=== PATIENT | male | born 1965 | race Caucasian/White ===

== ENCOUNTER 2018-03-01 06:56 | Emergency (ER) | payer BC ==
--- OUTSIDE RECORDS SUMMARY | 2018-03-01 06:58 | XMS REPORT | Clinical Summary ---
:1965 Author Organization [facility] Address [address] [place] [address] Care Team Providers Name Role Phone Hayes Diego MD Primary Care Provider Allergies No Known Allergies Current Medications Prescription Sig. Disp. Refills Start Date End Date Status lisinopril-hydrochlorothia 01/29/2018 Active zide (PRINZIDE,ZESTORETIC) 20-12.5 mg per tablet rosuvastatin (CRESTOR) 40 01/29/2018 Active MG tablet omeprazole (PriLOSEC) 40 Take 40 mg by Active MG capsule mouth daily. Active Problems Problem Noted Date Cervical spondylosis with myelopathy 02/05/2018 Ulnar neuropathy at elbow, right 02/05/2018 Cervical radiculopathy at C7 02/05/2018 Cervical radiculopathy at C6 02/05/2018 Encounters Date Type Specialty Care Team Description 02/22/2018 Telephone Neurosurgery Breanna Aleman LVN 02/20/2018 Hospital Encounter General Surgery Pato Schultz S/Ada cervical spinal fusion; MD Miri Spondylosis of cervical spine with myelopathy 02/20/2018 Ancillary Orders Radiology Pato Schultz S/Ada cervical spinal MD Miri fusion 02/20/2018 Procedure Pass General Surgery 02/20/2018 Surgery General Surgery Ptao Schultz ANTERIOR CERVICAL MD Miri DISCECTOMY AND FUSION C5-C7, RIGHT ILIAC CREST BONE MARROW ASPIRATION 02/05/2018 Pre-Admit Testing Pre-Admission Testing Pato Schultz Preop testing Appointment MD Miri (Primary Dx) 02/05/2018 Hospital Encounter Radiology Pato Schultz MD 02/05/2018 Office Visit Neurosurgery Pato Schultz Cervical spondylosis with myelopathy (Primary Dx); MD Miri Ulnar neuropathy at elbow, right; Cervical radiculopathy at C7; Cervical radiculopathy at C6 02/05/2018 Hospital Encounter Radiology Pato Schultz MD radiculopathy 02/05/2018 Hospital Encounter Radiology Pato Schultz MD radiculopathy 02/05/2018 Anesthesia Event General Surgery Zoey Augustinekaranmisael, ELEMENTARY EDUCATION TUTOR 02/05/2018 Procedure Pass Radiology 02/05/2018 Ancillary Orders Radiology Pato Schultz MD 02/02/2018 Abstract Neurosurgery Breanna Aleman, DONNA 02/02/2018 Orders Only Neurosurgery Pato Schultz MD radiculopathy (Primary Dx) after 02/28/2017 Family History Medical History Relation Name Comments Hepatitis Father Heart disease Maternal Grandfather Hypertension Maternal Grandfather Diabetes Maternal Grandmother Arthritis Mother Migraines Mother Relation Name Status Comments Father Maternal Grandfather Maternal Grandmother Mother Social History Tobacco Use Types Packs/Day Years Used Date Never Smoker Smokeless Tobacco: Never Used Alcohol Use Drinks/Week oz/Week Comments Yes 20 Glasses of wine 12.0 4-5 bottles of wine/week Sex Assigned at Date Recorded Not on file Last Filed Vital Signs Vital Sign Reading Time Taken Blood Pressure 132/82 02/20/2018 3:22 PM CDT Pulse 97 02/20/2018 3:22 PM CDT Temperature 36.7 C (98 F) 02/20/2018 3:22 PM CDT Respiratory Rate 18 02/20/2018 3:22 PM CDT Oxygen Saturation 98% 02/20/2018 3:22 PM CDT Inhaled Oxygen Concentration - - Weight 95.3 kg (210 lb 1.6 oz) 02/20/2018 8:17 AM CDT Height 185.4 cm (6' 1") 02/20/2018 8:17 AM CDT Body Mass Index 27.72 02/20/2018 8:17 AM CDT Plan of Treatment Health Maintenance Due Date Last Done Comments COLON CANCER SCREENING 09/17/2013 SHINGRIX VACCINE (#1) 09/17/2013 INFLUENZA VACCINE 01/10/2018 Implants Implanted Type Area [facility] Device Expiration Model / Identifier Date Serial / Lot Kit Putty Bone 1.5ml Mastergraft - [id number] Human N/A: MEDTRONIC SPINAL 06/11/2020 [id number] / Implanted: Qty: 1 on 02/20/2018 by Pato Schultz MD Tissue N/A AND BIOLOGICS / Implants [id number] Instrument [id number] Liam 2 Sheldon Trocar, Liam Needle (Other - Tl Retractor / Access), Disposable - [id number] IMPLANT N/A: MEDTRONIC [id number] / Implanted: Qty: 1 on 02/20/2018 by Pato Schultz MD DEVICES N/A SOFAMOR DANEK / Cage [id number] Anatomic Ptc [id number] - [id number] - [id number] [id number] IMPLANT N/A: MEDTRONIC 01/08/2026 [id number] / Implanted: Qty: 1 on 02/20/2018 by Pato Schultz MD DEVICES N/A SOFAMOR DANEK [id number] / 14FR Cage [id number] Anatomic Ptc [id number] - [id number] [id number] IMPLANT N/A: MEDTRONIC 12/18/2025 [id number] / Implanted: Qty: 1 on 02/20/2018 by Pato Schultz MD DEVICES N/A SOFAMOR DANEK / 11FS Screw Spinal Slf-Drl V-Ang 4x17mm - [id number] Spinal N/A: MEDTRONIC SPINAL [id number] / Implanted: 02/20/2018 (Quantity not on file) Implants N/A AND BIOLOGICS / Plate Cerv Ant 40mm [place] Vision Elite - [id number] Spinal N/A: MEDTR[employer]IC SPINAL [id number] / Implanted: 02/20/2018 (Quantity not on file) Implants N/A AND BIOLOGICS / Screw Distrctn 14mm Strl - [id number] Surgical N/A: ARMAMENTARIUM [id number] / Implanted: Qty: 1 on 02/20/2018 by Pato Schultz MD Implants; N/A INC / Expanders; Extenders; Surgical Wires Screw Distrctn 14mm Strl - [id number] Surgical N/A: ARMAMENTARIUM SM [id number] / Implanted: Qty: 1 on 02/20/2018 by Pato Schultz MD Implants; N/A INC / Expanders; Extenders; Surgical Wires Procedures Procedure Name Priority Date/Time Associated Comments Diagnosis SURGICAL PATHOLOGY Routine 02/20/2018 1:54 Results for this REQUEST PM CDT procedure are in the results section. XR CERVICAL SPINE 1 Routine 02/20/2018 12:33 S/P cervical spinal Results for this VW PM CDT fusion procedure are in the results section. XR CERVICAL SPINE 1 Routine 02/20/2018 10:40 S/P cervical spinal Results for this VW AM CDT fusion procedure are in the results section. XR CERVICAL SPINE 1 Routine 02/20/2018 10:33 S/P cervical spinal Results for this VW AM CDT fusion procedure are in the results section. AK AN ELECTIVE Routine 02/20/2018 10:08 ENDOTRACHEAL AIRWAY AM CDT Procedure Note - Maricel Maki MD - 02/20/2018 10:08 AM CDT Airway Date/Time: 02/20/2018 10:08 AM Performed by: MARICEL MAKI Authorized by: MARICEL MAKI Location: OR Urgency: Elective Difficult Airway: No Preoxygenated with 100% O2: Yes C-spine Precautions Maintained Throughout: No (gentle neck extention ) Mask Ventilation: Easy mask Final Airway Type: Endotracheal airway Final Endotracheal Airway: ETT Cuffed: No Technique Used: Direct laryngoscopy Devices/Methods Used in Placement: Intubating stylet Insertion Site: Oral Blade Type: Belinda Laryngoscope Blade/Videolaryngoscope Blade Size: 3 ETT Size (mm): 8.0 Measured from: Lips ETT to Lips (cm): 24 Placement Verified by: CO2 detection, direct visualization and equal breath sounds Laryngoscopic view: Grade I - full view of glottis (with laryngeal pressure ) Rapid Sequence Induction (RSI): No Modified RSI: No Number of Attempts at Approach: 1 Single uncomplicated attempt. Full view achieved with gentle upward pressure on larynx DISCECTOMY, CERVICAL, WITH 02/20/2018 10:00 AM CDT Spondylosis of cervical FUSION, ANTERIOR APPROACH spine with myelopathy Case Notes SUPINE POSITION, MICROSCOPE, MED[employer]ONIC INSTRUMENTATION, POSSIBLE EXTENDED RECOVERY NEEDED Special Needs SUPINE POSITION, MICROSCOPE, [employer] INSTRUMENTATION, POSSIBLE EXTENDED RECOVERY NEEDED ZZESTIMATED GFR Routine 02/05/2018 2:32 Results for this PM CDT procedure are in the results section. COMPREHENSIVE Routine 02/05/2018 2:32 Preop testing Results for this METABOLIC PANEL PM CDT procedure are in the results section. HC COMPLETE BLD COUNT Routine 02/05/2018 2:32 Preop testing Results for this W/AUTO DIFF PM CDT procedure are in the results section. XR CERVICAL SPINE Routine 02/05/2018 12:36 Cervical Results for this COMPLETE W FLEX EXT PM CDT radiculopathy procedure are in the results section. XR SPINE SCOLIOSIS Routine 02/05/2018 12:35 Cervical Results for this 2-3 VIEWS PM CDT radiculopathy procedure are in the results section. MRI SPINE EXTERNAL Routine 01/11/2018 4:19 Results for this STUDY PM CDT procedure are in the results section. after 02/28/2017 Results Surgical pathology request (02/20/2018 1:54 PM) [facility] DEPARTMENT OF PATHOLOGY AND GENOMIC MEDICINE Surgical pathology report See link below for PDF [facility] DE[facility] OF Lab Report PATHOLOGY AND GENOMIC MEDICINE Result status This is Final Report [facility] OF for [id number] PATHOLOGY AND GENOMIC MEDICINE Performing Organization Address City/[facility] Phone Number [facility] DEPARTMENT OF PATHOLOGY AND [address] [place] [address] GENOMIC MEDICINE XR Cervical Spine 1 Vw (02/20/2018 12:33 PM)Only the most recent of3 resultswithin the time period is included. Narrative Performed At EXAMINATION:XR CERVICAL SPINE 1 VW [facility] CLINICAL HISTORY:Z98.1 Arthrodesis status COMPARISON:None. IMPRESSION: Lateral intraoperative localization radiograph of the cervical spine demonstrates a clamp anterior to the spine at the level of mid C6. [facility]-[id number] Procedure Note Interface, Radiology Results Incoming - 02/20/2018 12:43 PM CDT EXAMINATION: XR CERVICAL SPINE 1 VW CLINICAL HISTORY: Z98.1 Arthrodesis status COMPARISON: None. IMPRESSION: Lateral intraoperative localization radiograph of the cervical spine demonstrates a clamp anterior to the spine at the level of mid C6. [facility]-[id number] Performing Organization Address City/[facility]/Zipcode Phone Number [facility] [address] [place] [address] Estimated GFR (02/05/2018 2:32 PM) GFR Non Af Amer 70 mL/min/1.73 m2 [facility] DEPARTMENT OF PATHOLOGY AND GENOMIC MEDICINE GFR Af Amer 84 mL/min/1.73 m2 [facility] DEPART[facility] OF Comment: PATHOLOGY AND GENOMIC Chronic kidney disease: <60 mL/min/1.73m2 MEDICINE Kidney failure: <15 mL/min/1.73m2 The estimated GFR is calculated from the IDMS-traceable Modification of Diet in Renal Disease Equation. The accuracy of the calculation is poor when the creatinine is normal. Calculated values >90 mL/min/1.73m2 are not reported. This equation has not been validated in children (<18 years), women, the elderly (>70 years), or ethnic groups other than Caucasians and Americans. Specimen Plasma specimen Performing Organization Address City/State/Zipcode Phone Number [facility] DEPARTMENT OF PATHOLOGY AND [address] [place] [address] [employer] [facility] CBC with platelet and differential (02/05/2018 2:32 PM) WBC 7.85 4.50 - 11.00 k/uL [facility] DEPARTMENT OF PATHOLOGY AND GENOMIC MEDICINE RBC 4.81 4.40 - 6.00 m/uL [facility] DE[facility]MENT OF PATHOLOGY AND GENOMIC MEDICINE HGB 14.9 14.0 - 18.0 g/dL [facility] DEPARTMENT OF PATHOLOGY AND GENOMIC MEDICINE HCT 44.5 41.0 - 51.0 % [facility] DEPARTMENT OF PATHOLOGY AND GENOMIC MEDICINE MCV 92.5 82.0 - 100.0 fL [facility] DEPARTMENT OF PATHOLOGY AND GENOMIC MEDICINE MCH 31.0 27.0 - 34.0 pg [facility] DEPARTMENT OF PATHOLOGY AND GENOMIC MEDICINE MCHC 33.5 31.0 - 37.0 g/dL [facility] DEPARTMENT OF PATHOLOGY AND GENOMIC MEDICINE RDW - SD 45.4 37.0 - 55.0 fL [facility] DEPARTMENT OF PATHOLOGY AND GENOMIC MEDICINE MPV 10.1 8.8 - 13.2 fL [facility] DEPARTMENT OF PATHOLOGY AND GENOMIC MEDICINE Platelet count 302 150 - 400 k/uL [facility] DEPARTMENT OF PATHOLOGY AND GENOMIC MEDICINE Nucleated RBC 0.00 /100 WBC [facility] DEPARTMENT OF PATHOLOGY AND GENOMIC MEDICINE Neutrophils 64.2 39.0 - 69.0 % [facility] DE[facility]MENT OF PATHOLOGY AND GENOMIC MEDICINE Lymphocytes 25.6 25.0 - 45.0 % [facility] DEPARTMENT OF PATHOLOGY AND GENOMIC MEDICINE Monocytes 8.7 0.0 - 10.0 % [facility] DEPARTMENT OF PATHOLOGY AND GENOMIC MEDICINE Eosinophils 0.8 0.0 - 5.0 % [facility] DEPARTMENT OF PATHOLOGY AND GENOMIC MEDICINE Basophils 0.3 0.0 - 1.0 % [facility] DEPARTMENT OF PATHOLOGY AND GENOMIC MEDICINE Immature granulocytes 0.4Comment: 0.0 - 1.0 % [facility] DEPART[facility] OF "Immature PATHOLOGY AND GENOMIC granulocytes" MEDICINE (promyelocytes, myelocytes, metamyelocytes) Specimen Blood Performing Organization Address City/[facility] Cent[facility]ode Phone Number [facility] DEPARTMENT OF PATHOLOGY AND [address] [place] [address] [facility] MEDICINE Comprehensive metabolic panel (02/05/2018 2:32 PM) Sodium 140 135 - 148 mEq/L [facility] DEPARTMENT OF PATHOLOGY AND GENOMIC MEDICINE Potassium 4.3 3.5 - 5.0 mEq/L [facility] DEPARTMENT OF PATHOLOGY AND GENOMIC MEDICINE Chloride 100 98 - 112 mEq/L [facility] DEPARTMENT OF PATHOLOGY AND GENOMIC MEDICINE CO2 24 24 - 31 mEq/L [facility] DEPARTMENT OF PATHOLOGY AND GENOMIC MEDICINE Anion gap 16@ANIO (H) 7 - 15 mEq/L [facility] DEPARTMENT OF PATHOLOGY AND GENOMIC MEDICINE BUN 24 (H) 6 - 20 mg/dL [facility] DEPARTMENT OF PATHOLOGY AND GENOMIC MEDICINE Creatinine 1.1 0.70 - 1.20 mg/dL [facility] DEPARTMENT OF PATHOLOGY AND GENOMIC MEDICINE Glucose 102 (H) 65 - 99 mg/dL [facility] DEPARTMENT OF PATHOLOGY AND GENOMIC MEDICINE Calcium 10.2 8.3 - 10.2 mg/dL [facility] DEPARTMENT OF PATHOLOGY AND GENOMIC MEDICINE Protein 7.7 6.3 - 8.3 g/dL [facility] DEPARTMENT OF Comment: PATHOLOGY AND GENOMIC 4.6-7.0 g/dL MEDICINE 1 week 4.4-7.6 g/dL 7 months-1year5.1-7.3 g/dL 1-2 years5.6-7.5 g/dL >3 years6.0-8.0 g/dL 18-150 6.3-8.3 g/dL Albumin 4.2 3.5 - 5.0 g/dL [facility] DEPARTMENT OF PATHOLOGY AND GENOMIC MEDICINE A/G ratio 1.2 0.7 - 3.8 [facility] DEPARTMENT OF PATHOLOGY AND GENOMIC MEDICINE Alkaline phosphatase 57 40 - 129 U/L [facility] DEPARTMENT OF PATHOLOGY AND GENOMIC MEDICINE AST 33 10 - 50 U/L [facility] DEPARTMENT OF PATHOLOGY AND GENOMIC MEDICINE ALT 42 5 - 50 U/L [facility] DEPARTMENT OF PATHOLOGY AND GENOMIC MEDICINE Total bilirubin 0.3 0.0 - 1.2 mg/dL [facility] DEPARTMENT OF PATHOLOGY AND GENOMIC MEDICINE Specimen Plasma specimen Performing Organization Address City/[facility]/Zipcode Phone Number [facility] DEPARTMENT OF PATHOLOGY AND [address] [place] [address] [facility] XR Cervical Spine Complete w flex/ext (02/05/2018 12:36 PM) Narrative Performed At EXAMINATION:XR CERVICAL SPINE COMPLETE W FLEX EXT [facility] CLINICAL HISTORY:M54.12 Radiculopathycervical region, radiculopathy COMPARISON: None. TECHNIQUE: Total of 8 radiographs of the cervical spine, including AP, lateral, and 2 oblique projections, with flexion and extension. IMPRESSION: Cervical spine is visualized to C6 level including C6-C7 intervertebral space. Straightening the cervical spine, however no subluxation on neutral, flexion or extension views. Vertebral heights preserved. Intervertebral disc space narrowing is noted at C5-C6 and C6-7 with endplate sclerosis. Medium sized osteophytes are seen in the lower portions of the cervical spine. At least mild neural foraminal narrowing is noted bilaterally at C5-C6 and C6-7 secondary to degenerative uncovertebral hypertrophy. No prevertebral soft tissue swelling. I personally reviewed the images and the resident's findings and agree with the final report. [facility]-[id number] Procedure Note Interface, Radiology Results Incoming - 02/05/2018 5:32 PM CDT EXAMINATION: XR CERVICAL SPINE COMPLETE W FLEX EXT CLINICAL HISTORY: M54.12 Radiculopathy cervical region, radiculopathy COMPARISON: None. TECHNIQUE: Total of 8 radiographs of the cervical spine, including AP, lateral, and 2 oblique projections, with flexion and extension. IMPRESSION: Cervical spine is visualized to C6 level including C6-C7 intervertebral space. Straightening the cervical spine, however no subluxation on neutral, flexion or extension views. Vertebral heights preserved. Intervertebral disc space narrowing is noted at C5-C6 and C6-7 with endplate sclerosis. Medium sized osteophytes are seen in the lower portions of the cervical spine. At least mild neural foraminal narrowing is noted bilaterally at C5-C6 and C6- 7 secondary to degenerative uncovertebral hypertrophy. No prevertebral soft tissue swelling. I personally reviewed the images and the resident's findings and agree with the final report. [facility]-[id number] Performing Organization Address City/State/Zipcode Phone Number [facility] [address] [place] [address] XR Spine Scoliosos 2-3 Views (02/05/2018 12:35 PM) Narrative Performed At EXAMINATION:XR SPINE SCOLIOSIS 2-3 VIEWS [facility] CLINICAL HISTORY:M54.12 Radiculopathycervical region, radiculopathy COMPARISON:None. Frontal and lateral views of entire spine was performed per scoliosis protocol. IMPRESSION: There is mild broad-based leftward curvature at T5. There is 10 degrees rightward curvature at T8. There is 8 degree leftward curvature at L1. There is 6 degrees rightward coronal balance. Femoral head heights are symmetric. Sagittal imaging shows 0 sagittal balance. There is no acute compression deformity. Heart size is upper normal. Aorta is mildly tortuous. Lungs are clear. Bowel gas pattern is nonobstructive. Visualized pelvic bones are intact with degenerative changes in the bilateral hip joints with joint space narrowing which is moderate severe left and severe on the right. [facility]-[id number] Procedure Note Interface, Radiology Results Incoming - 02/05/2018 2:44 PM CDT EXAMINATION: XR SPINE SCOLIOSIS 2-3 VIEWS CLINICAL HISTORY: M54.12 Radiculopathy cervical region, radiculopathy COMPARISON: None. Frontal and lateral views of entire spine was performed per scoliosis protocol. IMPRESSION: There is mild broad-based leftward curvature at T5. There is 10 degrees rightward curvature at T8. There is 8 degree leftward curvature at L1. There is 6 degrees rightward coronal balance. Femoral head heights are symmetric. Sagittal imaging shows 0 sagittal balance. There is no acute compression deformity. Heart size is upper normal. Aorta is mildly tortuous. Lungs are clear. Bowel gas pattern is nonobstructive. Visualized pelvic bones are intact with degenerative changes in the bilateral hip joints with joint space narrowing which is moderate severe left and severe on the right. [facility]-[id number] Performing Organization Address City/[facility]/Zipcode Phone Number [facility] [address] [place] [address] MRI Spine External Study (01/11/2018 4:19 PM) Narrative Performed At This exam was not acquired at a [facility] facility and has not been [facility] interpreted by a [facility] Provider.The exam was imported into our imaging system for comparisons purposes. Performing Organization Address City/State/Zipcode Phone Number [facility] [address] [place] [address] after 02/28/2017 Insurance Payer Benefit Plan / Group Subscriber ID Type Phone Address BCBS BCBS CHOICE PPO/FEDERAL EMPL PPO xxxxxxxxxxxx PPO Home: [address] [phone] [place], [place] [phone]
[2018-03-01] MEDS ORDERED: ASPIRIN 81 MG CHEWABLE TABLET ONE (07:18)
[2018-03-01] MEDS ORDERED: ONDANSETRON 4 MG/2 ML VIAL ONE ×2 (07:19→10:06)
[2018-03-01] MEDS ORDERED: MORPHINE 4 MG/ML SYR ONE ×2 (07:19→10:05)
[2018-03-01 07:47] LABS: Absolute Lymphocytes (CBC) 2.1 K/uL (0.7-4.9); Absolute Monocytes 0.7 K/uL (0.1-1.3); Absolute Neutrophil 5.4 K/uL (1.8-8.0); Basophils % 0.8 % (0-1.3); Hematocrit 45.4 % (39.6-49.0); Lymphocytes % 24.4 % (15.3-44.8); MCH 32.5 pg (27.0-35.0); MCV 93.3 fL (80-100); Monocytes % 8.4 % (3.3-12.3); Protime INR 0.98; RBC Red Blood Cell Count 4.87 M/uL (4.33-5.43)
[2018-03-01 07:59] LABS: ALT/SGPT 41 U/L (12-78); AST/SGOT 25 U/L (15-37); Albumin 3.7 g/dL (3.4-5.0); Alkaline Phosphatase 105 U/L (45-117); BUN Blood Urea Nitrogen 21 mg/dL (7-18); Bicarbonate 29 mmol/L (21-32); Bilirubin Direct 0.1 mg/dL (0-0.2); Bilirubin Total 0.3 mg/dL (0.2-1.0); Glucose Level 106 mg/dL (74-106); Magnesium 2.3 mg/dL (1.8-2.4); NT PRO-BNP 11 pg/mL (<125); Potassium 4.3 mmol/L (3.5-5.1); Protein, Total 8.5 g/dL (6.4-8.2); Sodium Level 140 mmol/L (136-145); Troponin (Emerg Dept Use Only) < 0.02 ng/mL (0.0-0.045)
--- NOTE | 2018-03-01 08:35 | RAD REPORT ---
EXAM DESCRIPTION: RAD - Chest Single View - 03/01/2018 7:40 am CLINICAL HISTORY: CHEST PAIN Chest pain. COMPARISON: No comparisons FINDINGS: Portable technique limits examination quality. The lungs are grossly clear. The heart is normal in size. No displaced fractures.Hardware is present in the cervical spine. IMPRESSION: No acute intrathoracic process suspected.
--- NOTE | 2018-03-01 08:42 | RAD REPORT ---
EXAM DESCRIPTION: CT - Chest For Pe Angio - 03/01/2018 8:25 am CLINICAL HISTORY: Chest pain. Chest pain;Dyspnea COMPARISON: No comparisons TECHNIQUE: CT angiogram of the pulmonary arteries was performed with MIP. All CT scans are performed using dose optimization technique as appropriate and may include automated exposure control or mA/KV adjustment according to patient size. FINDINGS: No evidence of pulmonary thromboembolism. No acute aortic finding demonstrated. Linear subsegmental atelectasis is present in the right lung base. Mild interstitial pulmonary edema versus interstitial pneumonia suspected. No significant pericardial or pleural fluid. Postsurgical hardware plate noted in the lower cervical spine. The paraspinal soft tissues in the reg ion are mildly thickened without a significant fluid collection seen. IMPRESSION: No evidence of pulmonary thromboembolism. Prominent interstitial markings bilaterally could indicate mild interstitial pulmonary edema versus i nterstitial pneumonitis.
--- NOTE | 2018-03-01 10:45 | EDPHYS ---
Physician Documentation [facility] Name: Toni Ohara Age: 52 yrs Sex: Male : 1965 Arrival Date: 03/01/2018 Time: 06:56 Bed 6 Private MD: Hayes Diego ED Physician Vicente Omer HPI: 03/01 07:07 This 52 yrs old Male presents to ER via Wheelchair with complaints of Chest kdr Pain > 30 y/o. 07:07 The patient or guardian reports chest pain that is located primarily in the substernal kdr area, anterior chest wall, bilaterally. Onset: suddenly, this morning. The pain radiates to neck, back. Associated signs and symptoms: Pertinent positives: None. Pertinent negatives: diaphoresis, dizziness, nausea, shortness of breath. The chest pain is described as aching, sharp. Duration: The patient or guardian reports multiple episodes, that are intermittent, that wax and wane, with no pattern. Modifying factors: The symptoms are alleviated by nothing. the symptoms are aggravated by nothing. Severity of pain: At its worst the pain was severe incapacitating in the emergency department the pain is unchanged. The patient has not experienced similar symptoms in the past. The patient has been recently seen by a physician: Had a cervical spine fusion a few weeks ago and has not had any pain like this in the past. Historical: - Allergies: 07:23 No Known Allergies; tw2 - Home Meds: 07:23 Crestor 20 mg Oral tab 1 tab once daily [Active]; lisinopril 5 mg Oral tab 1 tab once tw2 daily [Active]; omeprazole 20 mg Oral cpDR 1 cap once daily [Active]; WelChol 625 mg Oral tab 6 tabs once daily [Active]; - PMHx: 07:23 GERD; High Cholesterol; tw2 - Immunization history:: Adult Immunizations Adult Immunizations up to date. - Social history:: Smoking status: Smoking status: Patient/guardian denies using tobacco, Patient uses alcohol, on a daily basis. wine. - Ebola Screening: : Patient denies travel to an Ebola-affected area in the 21 days before illness onset Patient negative for fever greater than or equal to 101.5 degrees Fahrenheit, and additional compatible Ebola Virus Disease symptoms Patient denies exposure to infectious person Patient denies travel to an Ebola-affected area in the 21 days before illness onset. ROS: 07:07 Constitutional: Negative for fever, chills, and weight loss, Eyes: Negative for injury, kdr pain, redness, and discharge, ENT: Negative for injury, pain, and discharge, Neck: Negative for injury, pain, and swelling - prior incision from cervical spine fusion Respiratory: Negative for shortness of breath, cough, wheezing, and pleuritic chest pain, Abdomen/GI: Negative for abdominal pain, nausea, vomiting, diarrhea, and constipation, Back: Negative for injury and pain, : Negative for injury, bleeding, discharge, and swelling, MS/Extremity: Negative for injury and deformity, Skin: Negative for injury, rash, and discoloration, Neuro: Negative for headache, weakness, numbness, tingling, and seizure activity. Psych: Negative for depression, anxiety, suicide ideation, homicidal ideation, and hallucinations, Allergy/Immunology: Negative for hives, rash, and allergies, Endocrine: Negative for neck swelling, polydipsia, polyuria, polyphagia, and marked weight changes, Hematologic/Lymphatic: Negative for swollen nodes, abnormal bleeding, and unusual bruising. 07:07 Cardiovascular: Positive for chest pain, Negative for edema, orthopnea, palpitations, paroxysmal nocturnal dyspnea. Exam: 07:07 Constitutional: This is a well developed, well nourished patient who is awake, alert, kdr and in no acute distress. Head/Face: Normocephalic, atraumatic. Eyes: Pupils equal round and reactive to light, extra-ocular motions intact. Lids and lashes normal. Conjunctiva and sclera are non-icteric and not injected. Cornea within normal limits. Periorbital areas with no swelling, redness, or edema. Neck: Trachea midline, no thyromegaly or masses palpated, and no cervical lymphadenopathy. Supple, full range of motion without nuchal rigidity, or vertebral point tenderness. No Meningismus. Chest/axilla: Normal chest wall appearance and motion. Nontender with no deformity. No lesions are appreciated. Cardiovascular: Regular rate and rhythm with a normal S1 and S2. No gallops, murmurs, or rubs. Normal PMI, no JVD. No pulse deficits. Respiratory: Lungs have equal breath sounds bilaterally, clear to auscultation and percussion. No rales, rhonchi or wheezes noted. No increased work of breathing, no retractions or nasal flaring. Abdomen/GI: Soft, non-tender, with normal bowel sounds. No distension or tympany. No guarding or rebound. No evidence of tenderness throughout. Back: No spinal tenderness. No costovertebral tenderness. Full range of motion. Skin: Warm, dry with normal turgor. Normal color with no rashes, no lesions, and no evidence of cellulitis. MS/ Extremity: Pulses equal, no cyanosis. Neurovascular intact. Full, normal range of motion. Neuro: Awake and alert, GCS 15, oriented to person, place, time, and situation. Cranial nerves II-XII grossly intact. Motor strength 5/5 in all extremities. Sensory grossly intact. Cerebellar exam normal. Normal gait. Psych: Awake, alert, with orientation to person, place and time. Behavior, mood, and affect are within normal limits. Vital Signs: 07:15 BP 150 / 99; Pulse 90; Resp 18; Temp 97.9(O); Pulse Ox 94% on R/A; Weight 104.33 kg; hj Height 6 ft. 1 in. (185.42 cm); Pain 6/10; 07:29 Pulse Ox 99% on 2 lpm NC; 08:12 BP 127 / 83; Pulse 80; Resp 18; Pulse Ox 97% on 2 lpm NC; 09:30 BP 117 / 58; Pulse 78; Resp 18; Pulse Ox 100% on 2 lpm NC; 10:05 BP 140 / 87; Pulse 87; Resp 18; Pulse Ox 100% on 2 lpm NC; 11:01 BP 134 / 84; Pulse 90; Resp 18; Pulse Ox 97% on R/A; 07:15 Body Mass Index 30.34 (104.33 kg, 185.42 cm) MDM: 07:07 HEART Score: History: Moderately Suspicious (1), ECG: Normal (0), Age: > 45 and < 65 kdr years (1), Risk Factors: No Risk Factors Known (0), Troponin: < or = 1 x Normal Limit (0), Total Score =. HEART Score: Total Score =. IMANI Risk Score: TOTAL SCORE = 0. Data reviewed: vital signs, nurses notes, lab test result(s), EKG, radiologic studies. ED course: Heart Score = 2. 10:40 ED course: Offered the patient admission locally or transfer back to [facility]. He kdr indicated that he would rather be discharged and follow-up. His agreed that he seemed much better than when he was admitted. She felt he was back to his baseline and was comfortable with discharge. 10:44 Patient medically screened. kdr 03/01 07:07 Order name: Basic Metabolic Panel; Complete Time: 07:59 kdr 03/01 07:07 Order name: CBC with Diff; Complete Time: 07:59 kdr 03/01 07:07 Order name: LFT's; Complete Time: 07:59 kdr 03/01 07:07 Order name: Magnesium; Complete Time: 07:59 kdr 03/01 07:07 Order name: NT PRO-BNP; Complete Time: 07:59 kdr 03/01 07:07 Order name: PT-INR; Complete Time: 07:59 kdr 03/01 07:07 Order name: Troponin (emerg Dept Use Only); Complete Time: 07:59 kdr 03/01 07:07 Order name: XRAY Chest (1 view); Complete Time: 09:16 kdr 03/01 08:10 Order name: CT Chest For PE Angio; Complete Time: 09:16 kdr 03/01 09:19 Order name: Troponin (emerg Dept Use Only); Complete Time: 10:35 kdr 03/01 07:07 Order name: EKG; Complete Time: 07:08 kdr 03/01 07:07 Order name: Cardiac monitoring; Complete Time: 07:10 kdr 03/01 07:07 Order name: EKG - Nurse/Tech; Complete Time: 07:10 kdr 03/01 07:07 Order name: IV Saline Lock; Complete Time: 07:20 kdr 03/01 07:07 Order name: Labs collected and sent; Complete Time: 07:20 kdr 03/01 07:07 Order name: O2 Per Protocol; Complete Time: 07:10 kdr 03/01 07:07 Order name: O2 Sat Monitoring; Complete Time: 07:10 kdr Administered Medications: 07:07 Drug: morphine 4 mg Route: IVP; Site: right antecubital; iw 08:16 Follow up: Response: No adverse reaction hj 07:07 Drug: Zofran 4 mg Route: IVP; Site: right antecubital; iw 08:16 Follow up: Response: No adverse reaction hj 07:07 Drug: Aspirin Chewable Tablet 324 mg Route: PO; iw 08:16 Follow up: Response: No adverse reaction hj 09:58 Drug: morphine 4 mg Route: IVP; Site: right antecubital; hj 11:02 Follow up: Response: No adverse reaction; Pain is decreased hj 09:58 Drug: Zofran 4 mg Route: IVP; Site: right antecubital; hj 11:02 Follow up: Response: No adverse reaction hj Disposition: 03/01/18 10:44 Discharged to Home. Impression: Dyspnea, unspecified, Chest pain, unspecified. - Condition is Stable. - Discharge Instructions: Shortness of Breath, Nonspecific Chest Pain, [id number], Pneumonitis. - Prescriptions for Tramadol 50 mg Oral Tablet - take 1 tablet by ORAL route every 8 hours as needed; 12 tablet. Methylprednisolone 8 mg Oral Tablet - take 2 tablet by ORAL route once daily for 5 days then 2 tablets (16 mg) every other day for 1 month; 10 tablet. - Medication Reconciliation Form, Thank You Letter form. - Follow up: Hayes Diego MD; When: 2 - 3 days; Reason: If symptoms return, Further diagnostic work-up, Recheck today's complaints, Continuance of care, Re-evaluation by your physician. - Problem is new. - Symptoms have improved. Signatures: Dispatcher [employer] EDMS Vicente Omer MD MD kdr Hailey Garcia RN RN iw Jessee Morel RN RN hj Wise, Tara RN RN tw2 Corrections: (The following items were deleted from the chart) 11:33 10:44 03/01/2018 10:44 Discharged to Home. Impression: Dyspnea, unspecified; Chest iw pain, unspecified. Condition is Stable. Forms are Medication Reconciliation Form, Thank You Letter, Antibiotic Education, Prescription Opioid Use. Follow up: Hayes Diego; When: 2 - 3 days; Reason: If symptoms return, Further diagnostic work-up, Recheck today's complaints, Continuance of care, Re-evaluation by your physician. Problem is new. Symptoms have improved. kdr
--- NOTE | 2018-03-01 10:45 | ER ---
Nurse's Notes [facility] Name: Toni Ohara Age: 52 yrs Sex: Male : 1965 Arrival Date: 03/01/2018 Time: 06:56 Bed 6 Private MD: Hayes Diego Diagnosis: Dyspnea, unspecified;Chest pain, unspecified Presentation: 03/01 07:04 Presenting complaint: Patient states: had vertebrae fused 2 weeks ago, last night was iw having back pain then then pain moved into his chest, c/o midsternal CP non radiating. Transition of care: patient was not received from another setting of care. Onset of symptoms was March 01, 2018. Risk Assessment: Do you want to hurt yourself or someone else? Patient reports no desire to harm self or others. Initial Sepsis Screen: Does the patient meet any 2 criteria? No. Patient's initial sepsis screen is negative. Does the patient have a suspected source of infection? No. Patient's initial sepsis screen is negative. Care prior to arrival: None. 07:04 Method Of Arrival: Wheelchair iw 07:04 Acuity: SHILO 3 iw Historical: - Allergies: 07:23 No Known Allergies; tw2 - Home Meds: 07:23 Crestor 20 mg Oral tab 1 tab once daily [Active]; lisinopril 5 mg Oral tab 1 tab once tw2 daily [Active]; omeprazole 20 mg Oral cpDR 1 cap once daily [Active]; WelChol 625 mg Oral tab 6 tabs once daily [Active]; - PMHx: 07:23 GERD; High Cholesterol; tw2 - Immunization history:: Adult Immunizations Adult Immunizations up to date. - Social history:: Smoking status: Smoking status: Patient/guardian denies using tobacco, Patient uses alcohol, on a daily basis. wine. - Ebola Screening: : Patient denies travel to an Ebola-affected area in the 21 days before illness onset Patient negative for fever greater than or equal to 101.5 degrees Fahrenheit, and additional compatible Ebola Virus Disease symptoms Patient denies exposure to infectious person Patient denies travel to an Ebola-affected area in the 21 days before illness onset. Screenin:21 Abuse screen: Denies threats or abuse. Nutritional screening: No deficits noted. tw2 Tuberculosis screening: No symptoms or risk factors identified. Fall Risk None identified. Assessment: 07:15 General: provider in room with family; . hj 07:21 General: Appears in no apparent distress. uncomfortable, Behavior is calm, cooperative, hj appropriate for age. Pain: Pain does not radiate. Pain currently is 6 out of 10 on a pain scale. Quality of pain is described as pressure, Pain began 1 day ago. Is intermittent. Neuro: Level of Consciousness is awake, alert, obeys commands, Oriented to person, place, time, situation, Appropriate for age. Cardiovascular: Capillary refill < 3 seconds Patient's skin is warm and dry. Respiratory: Airway is patent Respiratory effort is even, unlabored, Respiratory pattern is regular, symmetrical. GI: No signs and/or symptoms were reported involving the gastrointestinal system. : No signs and/or symptoms were reported regarding the genitourinary system. EENT: No signs and/or symptoms were reported regarding the EENT system. Derm: No signs and/or symptoms reported regarding the dermatologic system. Musculoskeletal: No signs and/or symptoms reported regarding the musculoskeletal system. 07:49 Reassessment: Patient and/or family updated on plan of care and expected duration. Pain hj level reassessed. Patient is alert, oriented x 3, equal unlabored respirations, skin warm/dry/pink. states, "the pressure feeling is gone its just the little tightness now, i feel better now"; Patient states symptoms have improved. 09:30 Reassessment: Patient and/or family updated on plan of care and expected duration. Pain hj level reassessed. Patient is alert, oriented x 3, equal unlabored respirations, skin warm/dry/pink. MD at bedside for results and POC;. 10:04 Reassessment: Patient and/or family updated on plan of care and expected duration. Pain hj level reassessed. Patient is alert, oriented x 3, equal unlabored respirations, skin warm/dry/pink. awaiting result of 2nd set of trop;. 10:41 Reassessment: provider in room for POC:. hj 11:24 Reassessment: Patient appears in no apparent distress at this time. Patient and/or tw2 family updated on plan of care and expected duration. Pain level reassessed. Patient is alert, oriented x 3, equal unlabored respirations, skin warm/dry/pink. Vital Signs: 07:15 BP 150 / 99; Pulse 90; Resp 18; Temp 97.9(O); Pulse Ox 94% on R/A; Weight 104.33 kg; hj Height 6 ft. 1 in. (185.42 cm); Pain 6/10; 07:29 Pulse Ox 99% on 2 lpm NC; hj 08:12 BP 127 / 83; Pulse 80; Resp 18; Pulse Ox 97% on 2 lpm NC; hj 09:30 BP 117 / 58; Pulse 78; Resp 18; Pulse Ox 100% on 2 lpm NC; hj 10:05 BP 140 / 87; Pulse 87; Resp 18; Pulse Ox 100% on 2 lpm NC; hj 11:01 BP 134 / 84; Pulse 90; Resp 18; Pulse Ox 97% on R/A; hj 07:15 Body Mass Index 30.34 (104.33 kg, 185.42 cm) hj ED Course: 06:56 Patient arrived in ED. am2 06:57 Hayes Diego MD is Private Physician. am2 06:58 Jessee Morel, REGINA is Primary Nurse. hj 07:05 Triage completed. iw 07:06 Vicente Omer MD is Attending Physician. kdr 07:08 EKG done, by ED staff, reviewed by Vicente Omer MD. hj 07:12 Inserted saline lock: 20 gauge in right antecubital area, using aseptic technique. tw2 Blood collected. 07:21 Patient maintains SpO2 saturation greater than 95% on room air. tw2 07:21 Patient has correct armband on for positive identification. Placed in gown. Bed in low hj position. Call light in reach. Side rails up X 1. Adult w/ patient. 07:21 satellite project site monitor on. Pulse ox on. NIBP on. hj 07:22 Arm band placed on right wrist. hj 07:38 X-ray completed. Portable x-ray completed in exam room. Patient tolerated procedure sw well. 07:38 XRAY Chest (1 view) In Process Unspecified. EDMS 08:20 CT completed. Patient tolerated procedure well. Patient moved to CT via stretcher. jg6 Patient moved back from CT. 08:25 CT Chest For PE Angio In Process Unspecified. EDMS 09:57 Troponin (emerg Dept Use Only) Sent. hj 10:43 Hayes Diego MD is Referral Physician. kdr 11:15 called and left message with the office of Dr. Nii Toledo \\T\\[phone] for our ED eb doc. for patient consultation. 11:25 No provider procedures requiring assistance completed. IV discontinued, intact, tw2 bleeding controlled, No redness/swelling at site. Pressure dressing applied. 11:[address] Toledo with ED doctor for patient consulation. eb Administered Medications: 07:07 Drug: morphine 4 mg Route: IVP; Site: right antecubital; iw 08:16 Follow up: Response: No adverse reaction hj 07:07 Drug: Zofran 4 mg Route: IVP; Site: right antecubital; iw 08:16 Follow up: Response: No adverse reaction hj 07:07 Drug: Aspirin Chewable Tablet 324 mg Route: PO; iw 08:16 Follow up: Response: No adverse reaction hj 09:58 Drug: morphine 4 mg Route: IVP; Site: right antecubital; hj 11:02 Follow up: Response: No adverse reaction; Pain is decreased hj 09:58 Drug: Zofran 4 mg Route: IVP; Site: right antecubital; hj 11:02 Follow up: Response: No adverse reaction hj Outcome: 10:44 Discharge ordered by . kdr 11:25 Discharged to home ambulatory, with significant other. tw2 11:25 Condition: stable 11:25 Discharge instructions given to patient, significant other, Instructed on discharge instructions, follow up and referral plans. no drinking with medication, no driving heavy equipment, medication usage, Demonstrated understanding of instructions, follow-up care, medications, Prescriptions given X 2. 11:33 Patient left the ED. iw Signatures: Dispatcher [employer] EDMS Vicente Omer MD MD kdr Williams, Irene RN Varsha Madsen Henry, RN RN hj Wise, Tara RN RN tw2 Leesa Akbar Elizabeth eb Garcia, Jessica jg6 Corrections: (The following items were deleted from the chart) 11:04 07:04 Presenting complaint: Patient states: had vertebrae infused 2 weeks ago, last iw night was having back pain then then pain moved into his chest, c/o midsternal CP non radiating iw
--- NOTE | 2018-03-02 06:57 | EKG ---
Test Date: 2018-03-01 Test Time: 07:08:55 Veterinary Assistant: JOVANY MEASUREMENT RESULTS: Intervals: Rate: 94 MO: 150 QRSD: 76 QT: 326 QTc: 407 Brush: P: 30 MO: 150 QRS: 44 T: 36 INTERPRETIVE STATEMENTS: Normal sinus rhythm Normal ECG No previous ECG available for comparison Electronically Signed On 03-02-18 06:55:01 CDT by Daniel Bergeron
== END 2018-03-01 11:33 | disposition home or self-care (01) ==
LOC: ER 06:56
DX: R06.00 Dyspnea, unspecified (principal); E78.00 Pure hypercholesterolemia, unspecified; K21.9 Gastro-esophageal reflux disease without esophagitis
CPT/HCPCS: 36415; 71045; 71275; 80048; 80076; 83735; 83880; 84484; 85025; 85610; 93005; 96374; 96375; 99285; J2405; Q9967

== ENCOUNTER 2024-02-23 05:58 | Day surgery (SDC) | payer BC ==
[2024-02-21 10:09] LABS: Absolute Eosinophils 0.1 K/uL (0-0.5); Absolute Lymphocytes (CBC) 1.9 K/uL (0.7-4.9); Absolute Monocytes 0.6 K/uL (0.1-1.3); Absolute Neutrophil 3.4 K/uL (1.8-8.0); Basophils % 0.4 % (0-1.3); Eosinophils % 2.3 % (0-4.4); Hematocrit 43.2 % (39.6-49.0); Lymphocytes % 31.4 % (15.3-44.8); MCH 31.9 pg (27.0-35.0); MCHC 34.8 g/dL (32.0-36.0); MCV 91.6 fL (80-100); MPV 8.1 fL (7.6-11.3); Monocytes % 9.3 % (3.3-12.3); Neutrophils % 56.6 % (41.7-73.7); Nucleated Red Blood Cells % 0.1 % (0-0); Platelets 276 thou/uL (152-406); RBC Red Blood Cell Count 4.72 M/uL (4.33-5.43)
[2024-02-21 10:17] LABS: Protime INR 0.98
[2024-02-21 10:23] LABS: Anion Gap 10.1 mEq/L (5.0-15.0); Potassium 4.1 mEq/L (3.5-5.1)
--- NOTE | 2024-02-21 10:38 | RAD REPORT ---
EXAM DESCRIPTION: RAD - Chest Pa And Lat (2 Views) - 02/21/2024 10:25 am CLINICAL HISTORY: Pre op pending rotator cuff repair Chest pain. COMPARISON: Chest Single View dated 03/01/2018 FINDINGS: The lungs are clear. The heart is normal in size. No displaced fractures. Cervical spine h ardware plate. IMPRESSION: No acute or concerning finding suspected.
--- NOTE | 2024-02-22 16:24 | EKG ---
Test Date: 2024-02-21 Test Time: 09:55:21 Broom Machine Operator: TYE MEASUREMENT RESULTS: Intervals: Rate: 62 OH: 164 QRSD: 84 QT: 384 QTc: 389 [place]: P: 25 OH: 164 QRS: 58 T: 37 INTERPRETIVE STATEMENTS: Normal sinus rhythm Normal ECG Compared to ECG 03/01/2018 07:08:55 No significant changes Electronically Signed On 02-22-24 16:21:53 CDT by eFrny Mackenzie
[2024-02-23] MEDS ORDERED: Ringers Lactate 1,000 ML IV ONE ×2 (06:20→09:10)
[2024-02-23] MEDS ORDERED: CEFAZOLIN SODIUM 2 GM/VIAL ONE (06:20)
[2024-02-23] MEDS ORDERED: EPINEPHRINE 1 MG/ML VIAL ONE ×2 (06:46→07:37)
[2024-02-23] MEDS ORDERED: dexAMETHasone 10 MG/ML VIAL ONE ×2 (06:46→07:55)
[2024-02-23] MEDS ORDERED: FENTANYL CITR 100 MCG/2 ML ONE (06:46)
[2024-02-23] MEDS ORDERED: LIDOCAINE 1% MPF 5 ML VIAL ONE (06:46)
[2024-02-23] MEDS ORDERED: MIDAZOLAM HCL 2 MG/2 ML INJ ONE (06:47)
[2024-02-23] MEDS ORDERED: SODIUM BICARB 50 MEQ/50ML VIAL ONE (06:50)
[2024-02-23] MEDS ORDERED: propofoL 200 MG/20 ML VIAL IV ONE (07:55)
[2024-02-23] MEDS ORDERED: ROCURONIUM 50 MG/5 ML VIAL IV ONE (07:55)
[2024-02-23] MEDS ORDERED: LIDOCAINE 2% MPF 5 ML VIAL ONE (07:55)
[2024-02-23] MEDS ORDERED: ONDANSETRON 4 MG/2 ML VIAL ONE (07:55)
[2024-02-23] MEDS ORDERED: KETOROLAC 30 MG/ML INJ ONE (07:55)
[2024-02-23] MEDS ORDERED: NS 0.9% VIAL 10 ML ONE (08:50)
[2024-02-23] MEDS ORDERED: Phenylephrine HCl 10 MG/ML 1 ML VIAL ONE (08:52)
[2024-02-23] MEDS ORDERED: EPHEDRINE SULF 50 MG/ML VIAL ONE (08:53)
--- NOTE | 2024-02-23 10:11 | P.BOP ---
Preoperative diagnosis: right shoulder rotator cuff tear, biceps tendinitis, impingement syndrome Postoperative diagnosis: right shoulder rotator cuff tear, subacromial bursitis, impingement syndrom Primary procedure: Right shoulder arthroscopic rotator cuff repair Secondary procedure: Right arthroscopic subscapularis debridement and subacromial bursectomy Estimated blood loss: 10 cc Specimen: None Findings: See dictation Anesthesia: General Complications: None Implants: 4.75 mm Arthrex swivelock Fluids & blood products: Per anesthesia record Transferred to: Recovery Room Condition: Good
--- NOTE | 2024-02-23 10:16 | P.OP ---
Preoperative diagnosis: Right shoulder rotator cuff tear, biceps tendinitis, impingement syndrome Postoperative diagnosis: Right shoulder rotator cuff tear, subacromial bursitis, impingement syndrom Primary procedure: Right shoulder arthroscopic rotator cuff repair Secondary procedure: Right arthroscopic subscapularis debridement and subacromial bursectomy Anesthesia: General Estimated blood loss: 10 cc Specimen: None Findings: See dictation Operative Technique: Indication For Procedure: Toni is a 58-year-old male who presented to my clinic with signs, symptoms, and MRI findings consistent with a right shoulder full- thickness rotator cuff tear. I discussed with the patient risks and benefits associated with operative and nonoperative treatment. He expressed understanding and elected to proceed with operative treatment. Description Of Procedure: After informed consent was obtained, the patient was identified in the preoperative holding area. The right upper extremity was marked. The patient then was brought to the PACU where he underwent a right- sided interscalene block performed by Anesthesia. The patient was brought back to the operating room, transferred to the operative table in supine fashion, placed under general endotracheal anesthesia. He was then placed in a beach chair position with his extremities well padded. The right upper extremity was then prepped and draped in usual sterile fashion. A time-out was initiated. The correct patient and procedure were performed and identified. The patient did receive preoperative prophylactic antibiotics. Via the posterior portal position, a spinal needle was introduced in the glenohumeral joint and the shoulder was injected with 30 cc of normal saline to distend the capsule. A stab incision was made posteriorly and a posterior portal was created. Arthroscope was brought in via the posterior portal position and diagnostic arthroscopy was performed. Under direct visualization, an anterior portal and cannula were created. The patient was noted to have some fraying of the superior border of the subscapularis, which was debrided using the arthroscopic shaver. Subscapularis was found to be stable to probe. There were no significant instability of the superior labrum or anterior posterior labrum, which were stable to probe. There was mild tenosynovitis of the bicipital tendon near the anchor. There were no loose bodies within the axillary pouch. The patient was noted to have a small full-thickness tear of the anterior aspect of the supraspinatus. A lateral portal was created and an arthroscopic shaver was then used to debride the greater tuberosity. The rotator cuff tear was noted to reduce to the greater tuberosity. Greater tuberosity was debrided using the arthroscopic shaver to create a bleeding bony bed. The undersurface of the rotator cuff tear was also debrided using the arthroscopic shaver to remove any unhealthy tissue. The arthroscope was then brought in the subacromial space. There is significant subacromial bursitis with significant hyperemia of the bursal tissue. A subacromial bursectomy was performed using arthroscopic shaver. The rotator cuff tear was found. It was very small in size. A speed fix configuration was performed. A fiber tape suture was then passed in an inverted horizontal mattress type fashion and brought to a lateral swivel lock anchor for reduction of the rotator cuff tear on the greater tuberosity. Remaining suture limbs were cut. There was some significant fraying of a coracoacromial ligament as well as some undersurface spurring of the acromion and acromioplasty was performed using a radiofrequency ablator and an arthroscopic bur. Arthroscopic instruments were then removed without com plication. Wounds were then irrigated thoroughly with normal saline. Subcutaneous tissue was approximated using a 2-0 Vicryl. Portals were approximated using a 3-0 Monocryl. Sterile dressings were applied. Shoulder immobilizer was placed. The patient was awakened and transferred to PACU in stable condition. Postoperative Plan: The patient will be nonweightbearing in a shoulder immobilizer for 6 weeks. We will follow the medium rotator cuff repair protocol 3 weeks postoperatively. Complications: None Implants: Arthrex 4.75 mm swivel lock Fluids & blood products: Per anesthesia record Transferred to: Recovery Room Condition: Good
[2024-02-23 10:43] VITALS: TEMP 97
--- NOTE | 2024-02-23 10:45 | RAD REPORT ---
EXAM DESCRIPTION: RAD - Shoulder 1 View - 02/23/2024 10:35 am CLINICAL HISTORY: shoulder surgery FINDINGS: Frontal view of the shoulder was obtained. No fracture or dislocation is seen. Postsurgical changes noted
[2024-02-23 11:09] VITALS: BP 135/81; O2SAT 100
== END 2024-02-23 11:44 | disposition home or self-care (01) ==
LOC: OR 05:58
PROVIDERS: ATTEND Orthopaedic Surgery Sports Medicine
PROC: 0MB14ZZ Excision of Right Shoulder Bursa and Ligament, Percutaneous Endoscopic Approach (ICD-10-PCS; 2024-02-23)
PROC: 0LB14ZZ Excision of Right Shoulder Tendon, Percutaneous Endoscopic Approach (ICD-10-PCS; principal; 2024-02-23 08:00)
DX: M75.121 Complete rotator cuff tear or rupture of right shoulder, not specified as traumatic (principal); M75.21 Bicipital tendinitis, right shoulder; M75.41 Impingement syndrome of right shoulder; M75.51 Bursitis of right shoulder
CPT/HCPCS: 29827; 29822; 93005; 85025; 80048; 36415; 85610; 85730; 71046; 73020; A4216; J2704; J2001 ×2; J2371; J2250; J3010; J1100 ×2; J0171 ×2; J2405; J7120 ×2